=== PATIENT | male | born 1950 | race Caucasian/White ===

== ENCOUNTER 2022-03-01 06:55 | Day surgery (SDC) | payer MEDICARE ==
[~2022-03-01] VITALS: Ht 172.7 cm; Wt 90.8 kg
[2022-03-01] MEDS ORDERED: Hytrin2 MG (07:40)
--- NOTE | 2022-03-01 07:45 | NUR ---
03/01/22 0745 Liliana Bazzi CALL LIGHT WITHIN REACH. TETRACAINE DROP IN RIGHT EYE AT 0740, PLEDGETT AT 0741.
== END 2022-03-01 09:02 | disposition home or self-care (01) ==
LOC: ORSCSDS 06:55
PROVIDERS: Ophthalmology
PROC: 08RJ3JZ Replacement of Right Lens with Synthetic Substitute, Percutaneous Approach (ICD-10-PCS; principal; 2022-03-01 08:30)
DX: H25.11 Age-related nuclear cataract, right eye (principal); E66.9 Obesity, unspecified; Z68.30 Body mass index [BMI] 30.0-30.9, adult; Z79.899 Other long term (current) drug therapy
CPT/HCPCS: J2001; J2250; J3010; J3301; J7040; V2632

== ENCOUNTER 2024-05-30 07:36 | Day surgery (SDC) | payer MEDICARE ==
[~2024-05-30] VITALS: Ht 154.9 cm; Wt 88.5 kg
[~2024-05-30 07:36] MED LIST: Balanced Salt Epinephrine Irrigation Solution 500 mL IR SCH; Hytrin2 MG; Lidocaine HCl/Pf 1% 5 ML VIAL ONE; Lidocaine HCl/Pf 1% 5 ML VIAL XX SCH; Moxifloxacin HCL 0.5 MG/0.1 ML 0.4MLSYR LEFTEYE SCH; NS 500 ML IV ONE; PHENYLEPHRINE\\TROPICAMIDE\\TETRACAINE OPHTHALMIC DILATING SOLN LEFTEYE PRN; Povidone-Iodine 450 DROP/30 ML Solution LEFTEYE SCH; Triamcinolone Inj Susp 40 MG / ML 1ML Vial INJ SCH; Triamcinolone Inj Susp 40 MG / ML 1ML Vial ONE
[2024-05-30] MEDS ORDERED: Midazolam HCl 1MG / ML 2ML Vial ONE ×3 (07:45→08:30)
[2024-05-30] MEDS ORDERED: NS 500 ML IV ONE ×2 (08:03)
[2024-05-30] MEDS ORDERED: FentaNYL Citrate 50 MCG/ML 2 ML Injection ONE (08:59)
[2024-05-30 09:21] VITALS: BP 112/64
== END 2024-05-30 09:40 | disposition home or self-care (01) ==
LOC: ORSCSDS 07:36
PROVIDERS: Ophthalmology
PROC: 08RK3JZ Replacement of Left Lens with Synthetic Substitute, Percutaneous Approach (ICD-10-PCS; principal; 2024-05-30 09:00)
DX: H25.812 Combined forms of age-related cataract, left eye (principal); Z96.1 Presence of intraocular lens; Z79.899 Other long term (current) drug therapy
CPT/HCPCS: J2001; J2250; J3010; J3301; J7040; V2632

== ENCOUNTER → 2024-07-24 | Outpatient (CLI) | payer MEDICARE ==
[~2024-07-24] MED LIST changes: -Balanced Salt Epinephrine Irrigation Solution 500 mL IR SCH; -Lidocaine HCl/Pf 1% 5 ML VIAL ONE; -Lidocaine HCl/Pf 1% 5 ML VIAL XX SCH; -Moxifloxacin HCL 0.5 MG/0.1 ML 0.4MLSYR LEFTEYE SCH; -NS 500 ML IV ONE; -PHENYLEPHRINE\\TROPICAMIDE\\TETRACAINE OPHTHALMIC DILATING SOLN LEFTEYE PRN; -Povidone-Iodine 450 DROP/30 ML Solution LEFTEYE SCH; -Triamcinolone Inj Susp 40 MG / ML 1ML Vial INJ SCH; -Triamcinolone Inj Susp 40 MG / ML 1ML Vial ONE
[2024-07-24 19:02] LABS: Adenovirus F 40/41 Not Detected (NOT DETECT); Astrovirus Not Detected (NOT DETECT); Campylobacter Sp Not Detected (NOT DETECT); Cryptosporidium Not Detected (NOT DETECT); Cyclospora Cayetanensis Not Detected (NOT DETECT); E. Coli O157 Not Detected (NOT DETECT); Entamoeba Histolytica Not Detected (NOT DETECT); Enteroaggregative E. coli-EAEC Not Detected (NOT DETECT); Enteropathogenic E. coli-EPEC Not Detected (NOT DETECT); Enterotoxigenic E. coli-ETEC Not Detected (NOT DETECT); Giardia Lamblia Not Detected (NOT DETECT); Norovirus GI/GII Not Detected (NOT DETECT); Plesiomonas Shigelloides Not Detected (NOT DETECT); Rotavirus A Not Detected (NOT DETECT); Salmonella Sp Not Detected (NOT DETECT); Sapovirus Not Detected (NOT DETECT); Shiga Toxin-prod E. coli-STEC Not Detected (NOT DETECT); Shigella/Enteroin E. coli-EIEC Not Detected (NOT DETECT); Vibrio Cholerae Not Detected (NOT DETECT); Vibrio Sp Not Detected (NOT DETECT); Yersinia Enterocolitica Not Detected (NOT DETECT)
== END | disposition home or self-care (01) ==
LOC: LAB 15:05 → LAB SHORT 15:05
PROVIDERS: Physician Assistant
DX: R19.7 Diarrhea, unspecified (principal)
CPT/HCPCS: 87507